=== PATIENT | male | born 1995 | race African-American/Black ===

== ENCOUNTER 2023-03-08 20:49 | Emergency (ER) | payer BC ==
[2023-03-08 21:50] LABS: SARS-CoV-2 NAA Rapid Test DETECTED (NotDetected)
[2023-03-08] MEDS ORDERED: Dexamethasone 10 MG/ML VIAL ONE (23:10)
[2023-03-08] MEDS ORDERED: Ketorolac Tromethamine 30 MG/ML VIAL ONE (23:10)
[2023-03-08] MEDS ORDERED: Ondansetron ODT 4 MG TAB ONE (23:10)
== END 2023-03-08 23:20 | disposition home or self-care (01) ==
LOC: CSHERS 20:49
DX: U07.1 COVID-19 (principal)
CPT/HCPCS: 96372; 99283; J1100; J1885; Q0162

== ENCOUNTER 2023-05-12 16:27 | Emergency (ER) | payer OTHER, BC | END 2023-05-12 18:43 | disposition home or self-care (01) | LOC: CSHERS 16:27 | DX: M25.532 Pain in left wrist (principal) ==